=== PATIENT | male | born 1995 ===

== ENCOUNTER 2021-06-18 08:45 | Outpatient (RCR) | payer OTHER, SELFPAY ==
[2021-06-02 13:17] VITALS: BMI 51.3
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
--- NOTE | 2021-06-03 11:20 | PC.ADMIT ---
Patient is a 25 year old male who was has a primary diagnosis of Major Depressive disorder whose therapist suggested patient obtain a crisis evaluation d/t increased depression with passive SI no plan or intent, and increased anxiety secondary to the pandemic. Patient has been isolating and not leaving his house. Very little social interaction. Patient was attending college at [employer] however is taking a semester off to work on his mental health. Patient reports no structure and feelings of hopelessness and helplessness. Patient has thoughts thinking to himself,'why don't I just end things however reports that he could not do that to his family. Patient reports his family is supportive. Patient denied history of suicide attempts or past hospitalizations. Patient has Type II insulin dependent diabetes and sees an medical assistant supervisor every 3 months. Patient reports she checks his Blood sugars only a few times a week however he is suppose to check them at least 4 x a day however patient reports he does not like doing it. 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 Educated patient regarding diabetes and the importance of related self care in regards to checking BS as prescribed. Patient appeared to understand. Patient also self medicating with Marijuana using Marijuana dabs daily at 4pm. Educated patient regarding the mental and physical health consequences of heavy use. Patient stated he does not have a PCP at this time as he no longer can see his pediatric doctor. Stated he did have a new appointment with a new PCP however he missed the appointment. Wants to work with staff in finding a new PCP. Patient is alert and oriented x4. Calm and cooperative. Presents with depressed mood and affect. Medications reconciled with patient and patient's Pharmacy. Confirmed Venlafaxine dose with patient's prescriber Lucas Motley.
--- NOTE | 2021-06-03 14:45 | PC.NURSE ---
Case opened in treatment team
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
--- NOTE | 2021-06-08 16:15 | PC.NURSE ---
I called pt half during the second group when staff texted saying that he was not in group. He said he was sleeping, and was very apologetic. He asked to take the rest of the day off. He said he is okay and safe, just didn't sleep well last night.
--- NOTE | 2021-06-18 08:33 | PC.NURSE ---
Patient is scheduled to discharge from the program today. Reviewed patient medications with patient. Patient appears to understand his medications and reports taking them as prescribed. Patient feels ready for discharge however stated he will miss everyone. Patient does not have a PCP and asked for staff help obtaining one. [facility] is taking on new patients with patient's insurance however patient has to call his insurance company and change the PCP on file as the PCP on file was assigned to the patient however unable to find where the PCP is in practice. Patient reports he aged out of pediatrics. I gave patient the number to the insurance company and the name and ID number of the physician the practice works under. I have called patient and reminded him to call his insurance company to change PCP including this morning. Patient reports he will call now. Patient also has the number to the [address] office to schedule a PCP appointment after he changes his PCP with his insurance company.
--- NOTE | 2021-06-18 11:10 | P.PNPSP_ITS ---
Subjective Subjective Date of Service: 06/18/21 Reason For Visit: MDD Guardianship: No Medical Problems Affecting Mental Status: No Interim History: Patient describes mood as ?I am good, it is bitter sweet today ?. He states that he has some anxiety about leaving program, as he is uncertain what he will do next. Overall though describes mood as stable. Expresses hope for future. Plans to contact [facility]. Denies any SI/HI, no safety concern. Happy with current medication regimen. Medication Compliance: Yes Side effects from medications: No Attending Groups: Yes Review of Systems Acute medical concerns: No Medical Review of Systems: unchanged Review of Systems Review of Systems Yes all other systems are reviewed and are negative Constitutional: Reports no additional constitutional complaints Mental Status Exam Mental Status Exam Narrative: Well-developed, obese male, in NAD. Speech was coherent, regular rate and rhythm, full Prozac D, normal volume. fully attentive and cooperative during interview. Denied SI/HI. Expressed hope for future. Patient Appearance: Fatigued and Appropriate Patient Orientation: Person, Place, Time and Situation Level of Consciousness: Awake, Appropriate and Alert Patient Behavior: Appropriate, Cooperative and Good Eye Contact Mood Description: Happy and Anxious Affect Description: Appropriate and Anxious Patient Cognition Impaired: No Ability to Follow Directions: Good Speech Pattern: Clear, Appropriate and Coherent Memory Description: Intact Hallucinations: None Delusions: Not Present Thought Process: Intact, Goal Oriented and Linear Thought Content: positive for [place], positive for Goal Oriented and positive for Linear Depressive Symptoms: Increased Anxiety, Diff. Making Decisions, Difficulty Sleeping and Low Self Esteem Judgement: Good Diagnostics Vital Signs (24Hr): BMI result Body Mass Index 51.3 Assessment & Plan Assessment & Plan (1) Major depressive disorder, recurrent severe without psychotic features: Status: Acute Code(s): F33.2 - Major depressive disorder, recurrent severe without psychotic features Assessment and Plan: Patient describes mood as ?I am good, it is bitter sweet today ?. He states that he has some anxiety about leaving program, as he is uncertain what he will do next. Overall though describes mood as stable. Expresses hope for future. Plans to contact [facility], says he hopes to find some direction on what to do with my life, maybe get a job . Denies any SI/HI, no safety concern. Happy with current medication regimen. Reports he sought outpatient provider yesterday, with no changes to his medications. Will see his outpatient provider in 1 month. (2) Post-traumatic stress disorder, chronic: Status: Acute Code(s): F43.12 - Post-traumatic stress disorder, chronic (3) Cannabis dependence, uncomplicated: Status: Acute Code(s): F12.20 - Cannabis dependence, uncomplicated Assessment and Plan: Patient continues to use cannabis each day at 16:00. Reports that he does not see this as an issue in his life, and that he does not feel it impairs his functioning in any way. (4) Autism spectrum: Status: Acute Code(s): F84.0 - Autistic disorder Plan 1. Patient appears stable for discharge from [facility] at this time. 2. Patient will follow-up with outpatient providers going forward. Patient educated on: diagnosis, medication risk/benefits, substance abuse and therapeutic strategies Informed Consent: understands Reason for contiued partial hosp. stay Substantial Risk for: stable for discharge Certification I certify that partial hospital treatment is medically necessary due to the symptoms and problems resulting from the patient's mental illness and the failure to treat the patient at the partial hospital level of care would likely result in the patient requiring inpatient psychiatric care which could not be prevented at a less intensive level of care. I spent minutes with the patient and/or on the patient floor today, greater than?50% of which was spent counseling/coordinating care. Discharge Plan Discharge Attending provider: Terrell Talley Medications: No Action prazosin 1 mg Capsule 1 mg PO BEDTIME 0RF venlafaxine 100 mg Tablet 175 mg PO DAILY@1600 0RF venlafaxine 100 mg Tablet 150 mg PO DAILY 0RF ziprasidone HCl 60 mg Capsule 60 mg PO BID 0RF Rx Instructions: give with food (meal/snack) bupropion HCl 300 mg Tablet Extended Release 24 Hr 300 mg PO QAM 0RF Lantus Solostar U-100 Insulin 100 unit/mL (3 mL) Insulin Pen 40 unit SUBCUT DAILY 0RF Trulicity 3 mg/0.5 mL Pen Injector 3 mg SUBCUT QWEEK 0RF Rx Instructions: Weekly on Tuesdays. Stand Alone Forms: Patient Portal Discharge page Telehealth Telehealth Location of provider rendering services: practice address Location of patient: address on file Patient Identification confirmed using: Name, : Yes Telehealth method: video Patient verbally consented to treatment: Yes Patient verbally consented to billing insurance company: Yes Patient informed of any privacy concerns related to visit: Yes Time spent with patient (mins): 15
--- NOTE | 2021-06-18 13:19 | PC.NURSE ---
I called and left a message for the clients therapist, Marcus GUTIERREZ about client discharge from the program and dc plans.
== END 2021-06-18 23:59 | disposition home or self-care (01) ==
LOC: HO.PHPA 08:45
PROVIDERS: Visit Provider Psychiatry & Neurology Psychiatry
DX: F33.2 Major depressive disorder, recurrent severe without psychotic features (principal); F43.12 Post-traumatic stress disorder, chronic; F84.0 Autistic disorder; F12.20 Cannabis dependence, uncomplicated
CPT/HCPCS: 90791; 90853